=== PATIENT | male | born 1935 | race Caucasian/White ===

== ENCOUNTER 2016-12-27 09:48 | Day surgery (SDC) | payer MEDICARE ==
[~2016-12-27] VITALS: Ht 185.4 cm; Wt 84.7 kg
[2016-12-27] MEDS ORDERED: LEVO50TA4 PO (10:42)
[2016-12-27] MEDS ORDERED: FINA5TAB2 PO (10:42)
[2016-12-27] MEDS ORDERED: ZOCO80TA PO (10:42)
[2016-12-27] MEDS ORDERED: ASPI81TA11 PO (10:42)
[2016-12-27] MEDS ORDERED: ATEN25TA PO (10:42)
[2016-12-27 10:44] VITALS: BP 131/77; PULSE 68; RESP 18; TEMP 97.5; O2SAT 97
[2016-12-27 11:01] LABS: AUTOMATED NEUTROPHIL # 5.3 TH/MM3 (1.8-7.7); BASOPHIL # 0.1 TH/MM3 (0-0.2); BASOPHIL % 0.7 % (0.0-2.0); EOSINOPHIL # 0.2 TH/MM3 (0-0.4); HEMATOCRIT 47.9 % (39.0-51.0); HEMO FLAGS DIFF FINAL; LYMPH % 18.9 % (9.0-44.0); LYMPHOCYTE # 1.5 TH/MM3 (1.0-4.8); MEAN CELL VOLUME 90.8 FL (80.0-100.0); MEAN CORPUSCULAR HEMOGLOBIN 31.9 PG (27.0-34.0); MEAN CORPUSCULAR HGB CONC 35.2 % (32.0-36.0); MONO % 10.9 % (0.0-8.0); NEUT % 67.5 % (16.0-70.0); PLATELET COUNT 162 TH/MM3 (150-450); RED BLOOD COUNT 5.28 MIL/MM3 (4.50-5.90); RED CELL DISTRIBUTION WIDTH 12.5 % (11.6-17.2); WHITE BLOOD COUNT 7.8 TH/MM3 (4.0-11.0)
[2016-12-27 11:11] LABS: APTT (PATIENT) 29.2 SEC (24.3-30.1)
[2016-12-27 11:14] LABS: BICARBONATE 26.6 MEQ/L (21.0-32.0); POTASSIUM 3.6 MEQ/L (3.5-5.1)
[2016-12-27] MEDS ORDERED: HEPARIN-NS/PF INJ 500 ML ONE (11:56)
[2016-12-27] MEDS ORDERED: ASPIRIN 81 MG CHEW TAB PO ONE (12:00)
[2016-12-27] MEDS ORDERED: NS 1000P @30 MLS/HR (KVO) IV SCH (12:00)
[2016-12-27] MEDS ORDERED: IOHEXOL 350 MG/ML 50 ML BTL (for Cath Lab) OTHER ONE (12:03)
[2016-12-27] MEDS ORDERED: MISC INFORMATION XX ONE (13:15)
[2016-12-27] MEDS ORDERED: SODIUM CHLORIDE 0.9% FLUSH 10 ML FLUSH PRN (13:15)
--- NOTE | 2016-12-27 13:28 | CATHPROC ---
Heart [employer] HIS Report Study Information Study Number Admission Scheduled Start Study Start [id number] Dec 27 2016 9:48AM 12/27/2016 Dec 27 2016 11:47AM [place] [facility] Cardiac Catheterization Admit Source Facility Department Other [facility] - Public Policy Mediator Physician and Clinical Staff Initial iMsbah Ramírez RN, Amina Carlton RN Recorder Garcia Esposito,RT(R) Scrub Colton Barron RCIS(BS) Procedures Performed Procedure Location (Site) Vessel Name Coronary Angiograms LCA Left Coronary Coronary Angiograms RCA Right Coronary LV Gram-hand inj. LV LV Ventricle Equipment Time Peanut Cleaner Description Size Mfg Part Number Used/Scraped CATHETER, FR5 SWAN CASSY 11:50 LEIGH HOPPER FR 5 [id number] *[id number] Used MONITOR TRANSDUCER, TRUWAVE [id number] 11:50 LEIGH HOPPER * Used W/STOCKCOCK *[id number] 538-420 *[id number] 538-421 *[id number] 11:50 MEDLINE IND[employer] PACK, CCL CUSTOM * Used *[id number] 11:50 [employer] PACER PEN, SKIN DUAL W/ RULER * Used *[id number] 11:50 [email or web address] MEDICAL SHEATH, FR5.5 PRELUDE 11CM FR 5.5 Used 038ACT# [id number] 11:50 [email or web address] MEDICAL WIRE, 3MMJ .035 180CM 180CM Used *[id number] 11:50 NAMIC MANIFOLD, 4 PORT * Used *[id number] 11:50 NYCOMED OMNIPAQUE, 350 MG, 150ML 150ML [id number] Used [id number] 11:50 POWER MEDICAL BLANKET,WARM AIR CCL * Used *[id number] 11:50 Octamer MEDICAL SHEATH, FR4 TERUMO (10CM) FR 4 Used *[id number] History: Current Medications Medication Dosage/Unit Route Frequency Last Date/Time Taken ASA Statins (any) Synthroid Zocor History: Allergies Allergy Reaction No Known Allergies History: Risk Factors Family History of Hypertension Dyslipidemia Previous CT Previous Heart Failure Premature CAD Yes Yes No No No Prior Valve Prior PCI Prior CABG Surgery No No No Cerebrovascular Peripheral Artery Chronic Lung On Dialysis Diabetes Disease Disease Disease No No No No No History: Symptoms/Diagnosis Selection Items Angina-unstable History: CV Disease Selection Items Known CAD History: Stress Tests Stress or Imaging Studies Performed Yes Standard Exercise Stress Test No Stress Echo No Stress Test SPECT Stress Test SPECT Result Stress Test SPECT Ischemia Risk/Extent Yes Positive High Stress Test CMR No Cardiac CTA Coronary Calcium Score No No History: Other Disease Selection Items CAD Cancer CHF HTN History: Other Current Smoker Method Quit Packs a Day Years Used Pack Years No Cigarettes 46 Years Ago 1 20 20 Labs Hgb (g/dl) Hct (%) RBC (MIL/MM3) WBC (l/cumm) Platelets (thousands) 11.60-17.00 35.00-51.00 4.00-5.90 4.00-11.00 150.00-450.00 16.9 47.9 5.2 7.8 162 Glucose (mg/dl) BUN (mg/dl) Creatinine (mg/dl) BUN:Creatinine (1:x) 74.00-106.00 7.00-18.00 0.50-1.30 10.00-20.00 96 15 0.7 21.4 Na (meq/l) K (meq/l) Cl (meq/l) CO2 (mmol/L) Ca (mg/dl) 136.00-145.00 3.50-5.10 98.00-107.00 21.00-32.00 8.50-10.10 140 3.6 107 26.6 8.9 PT (sec) PTT (sec) INR (PTT:PT) 9.80-11.60 24.30-30.10 0.90-1.10 11 29.2 1 CPK-MB (ng/ML) 0.50-3.60 Not Drawn Medication Medication Total Dose (Bolus/Oral) Medication Total Dosage/Unit 1% XYLOCAINE 20 mL Medications (Bolus/Oral) Medication Time Given Dosage/Unit Administered By Reason 1% XYLOCAINE 12/27/2016 12:42:55 PM 20 mL Misbah Dexter 20 mL 1% XYLOCAINE given in lab by Misbah Dexter in Right Groin via Subcutaneous. Medication (Drip) Medication Time Given Dosage/Unit Concentration/Unit Diluent (ml) Solution IV Solutions 12/27/2016 12:03:28 PM 0 mL (IV) 500 NaCl .9 IV Solutions given in lab by Erich Deal RN in Left Forearm via Peripheral IV. Pump/Drip Flow = 20 m l/hr using NaCl .9. Initial Case Assessment Cardiovascular HR Rhythm NIBP Chest Pain 59 Sinus 129/67 0 Edema Present Skin color Skin None Normal Warm Dry Circulatory - Right Pulses Dorsalis Pedis Femoral 2 2 Scale (0,1,2,3,4,d) Circulatory - Left Pulses Dorsalis Pedis Femoral 2 2 Scale (0,1,2,3,4,d) Neurological State Oriented to time-place- Alert Moves all extremities person Respiration - General Respiration Rate SpO2 (%) O2 (lpm) (B/min) 12 96 0 Final Case Assessment Cardiovascular HR Rhythm NIBP Chest Pain 61 Sinus 137/72 0 Edema Present Skin color Skin None Normal Warm Dry Circulatory - Right Pulses Dorsalis Pedis Femoral 2 2 Scale (0,1,2,3,4,d) Circulatory - Left Pulses Dorsalis Pedis Femoral 2 2 Scale (0,1,2,3,4,d) Neurological State Oriented to time-place- Alert Moves all extremities person Respiration - General Respiration Rate SpO2 (%) O2 (lpm) (B/min) 9 95 0 Chronological Log Time Study Chronological Log 12:03:16 Patient arrived via Bed. 12:03:17 Patient Name, D.O.B, / Armband Verified By R.N. 12:03:18 Consent signed by the physician and the patient and verified by the Public Policy Mediator staff. 12:03:19 Pre-op and post- op instructions given; patient acknowledges understanding of instructions. 12:03:21 Patient has been NPO for Less than 6Hrs. 12:03:22 Skin Breakdown- none per patient. 12:03:24 Patient Warmer Placed on the Table. 12:03:28 A # 20 IV was noted in the Forearm (left). Grade = 0 12:03:28 IV Solutions given in lab by Erich Deal RN in Left Forearm via Peripheral IV. Pump/Drip F low = 20 ml/hr using NaCl .9. 12:03:29 History and physical on the chart or being dictated. Assessment: Initial Case, HR=59 BPM, Rhythm=Sinus, XTEP=457/67 mmhg, Chest Pain=0, Edema=None, Color=Normal, Skin = Warm, Dry Right Pulses: Humberto Ped=2, Femoral=2 12:03:30 Left Pulses: Humberto Ped=2, Femoral=2 Neurological: State=Alert, Ox3, JHAVERI Respiration: Resp=12 B/min, SpO2=96 %, O2=0 lpm Vitals capture started with the following parameters, Patient=Adult, Interval=5 min, Initial Pr syxmzx=233 mmHg, 12:10:07 Deflation Rate=5 mmHg, Cuff placed on Right Arm 12:11:22 HR=59 bpm, TSBO=652/67 mmhg, SpO2=96.0 %, Resp=12 B/min, Pain=0, Britney=10, Al=2 12:15:47 HR=61 bpm, BCCS=921/69 mmhg, SpO2=96.0 %, Resp=10 B/min, Pain=0, Britney=10, Al=2 12:16:56 Bilateral groins prepped with 2% chlorhexidine, and with a 3 min. waiting time. 12:17:34 Reference ECG taken 12:20:07 MD paged 12:20:46 HR=61 bpm, KDRT=267/70 mmhg, SpO2=96.0 %, Resp=11 B/min, Pain=0, Britney=10, Al=2 12:22:07 Pressure channel 1 zeroed. 12:25:49 HR=59 bpm, NGTQ=506/69 mmhg, SpO2=96.0 %, Resp=6 B/min, Pain=0, Britney=10, Al=2 12:30:46 HR=60 bpm, KNIW=357/66 mmhg, SpO2=94.0 %, Resp=12 B/min, Pain=0, Britney=10, Al=2 12:35:45 HR=58 bpm, MMCS=697/71 mmhg, SpO2=97.0 %, Resp=7 B/min, Pain=0, Britney=10, Al=2 12:35:45 MD arrived. 12:40:46 HR=62 bpm, LYCL=841/69 mmhg, SpO2=97.0 %, Resp=10 B/min, Pain=0, Britney=10, Al=2 Time Out. Correct patient, correct procedure,correct physician, power injector not loaded with contrast with surgical 12:41:54 team present. Time Out Concurred by MD, individual staff in procedure 12:42:18 Case Start 12:42:55 20 mL 1% XYLOCAINE given in lab by Misbah Dextre in Right Groin via Subcutaneous. 12:43:18 Access site was Right Femoral Artery. 12:43:28 A SHEATH, FR4 TERUMO (10CM) FR 4 was advanced into the Fem Art (right) using the Percutaneo us technique. 12:45:11 Access site was Right Femoral Vein. 12:45:18 A SHEATH, FR5.5 PRELUDE 11CM FR 5.5 was advanced into the Fem Vein (right) using the Percut aneous technique. 12:46:15 Saturation: Site=FA (Femoral Artery) , O2=98 %, Hgb=16.9 gm/dl, Condition=Condition 1. Used in calculation. 12:46:28 HR=62 bpm, BKKW=697/71 mmhg, SpO2=95.0 %, Resp=18 B/min, Pain=0, Britney=10, Al=2 12:46:40 A CATHETER, FR5 SWAN CASSY MONITOR FR 5 was inserted via Fem Vein (right) 12:47:12 Saturation: Site=PA (Pulmonary Artery) , O2=84.2 %, Hgb=16.9 gm/dl, Condition=Condition 1. Used in calculation. Recorded Pressure: PCW, HR=65, Condition=Condition 1 12:47:31 (Pulmonary Capillary Wedge) PCW Recorded Pressure: MPA, HR=63, Condition=Condition 1 12:47:44 (Main Pulmonary Artery) MPA 15 Recorded Pressure: RV, HR=64, Condition=Condition 1 12:48:39 (Right Ventricle) RV Recorded Pressure: RA, HR=63, Condition=Condition 1 12:48:53 (Right Atrium) RA 12:49:25 [place] Cassy Catheter Removed 12:50:04 Saturation: Site=RA (Right Atrium) , O2=85.5 %, Hgb=16.9 gm/dl, Condition=Condition 1. Used in calculation. A JR 4.0 INFINITI CATHETER FR 4 was advanced over a wire. OMNIPAQUE, 350 MG, 150ML 150ML was us ed for 12:50:25 injections. Recorded Pressure: LV, HR=61, Condition=Condition 1 12:50:33 (Left Ventricle) LV 135/5/14 12:50:41 The LV was manually injected with 6 cc's and visualized. OMNIPAQUE, 350 MG, 150ML 150ML use d. 12:50:48 HR=61 bpm, UOZI=516/72 mmhg, SpO2=95.0 %, Resp=10 B/min, Pain=0, Britney=10, Al=2 Recorded Pressure: LV, Ao, HR=63, Condition=Condition 1 12:50:49 (Left Ventricle) LV 141/6/13, (Aorta) Ao 135/60/93 Recorded Pressure: Ao, HR=63, Condition=Condition 1 12:51:14 (Aorta) Ao 129/58/89 12:51:29 The RCA was injected and visualized at various angles. OMNIPAQUE, 350 MG, 150ML 150ML used . After removing the current catheter a JL 4.0 INFINITI CATHETER FR 4 was advanced over a WIRE, 3 MMJ .035 180CM 12:53:11 180CM. 12:55:49 HR=66 bpm, LYRV=757/72 mmhg, SpO2=96.0 %, Resp=12 B/min, Pain=0, Britney=10, Al=2 12:56:33 The LCA was injected and visualized at various angles. OMNIPAQUE, 350 MG, 150ML 150ML use d. 12:57:35 Catheter was removed 12:57:50 Case End 13:00:48 HR=65 bpm, YJIF=466/71 mmhg, SpO2=97.0 %, Resp=8 B/min, Pain=0, Britney=10, Al=2 13:03:17 Sheath removed; pressure applied to access site. 13:05:49 HR=70 bpm, JUXL=371/75 mmhg, SpO2=95.0 %, Resp=19 B/min, Pain=0, Britney=10, Al=2 13:10:52 HR=60 bpm, ATWY=766/72 mmhg, SpO2=94.0 %, Resp=19 B/min, Pain=0, Britney=10, Al=2 Assessment: Final Case, HR=61 BPM, Rhythm=Sinus, PFGJ=226/72 mmhg, Chest Pain=0, Edema=None, Color=Normal, Skin = Warm, Dry Right Pulses: Humberto Ped=2, Femoral=2 13:11:13 Left Pulses: Humberto Ped=2, Femoral=2 Neurological: State=Alert, Ox3, JHAVERI Respiration: Resp=9 B/min, SpO2=95 %, O2=0 lpm 13:13:28 No case complications noted. 13:13:29 Cine recording checked. 13:14:40 Bedside Report will be given. 13:14:54 A Left and Right Heart Cath was performed. 13:15:51 HR=63 bpm, TWCJ=154/68 mmhg, SpO2=94.0 %, Resp=26 B/min, Pain=0, Britney=10, Al=2 13:16:42 Sheath removed; pressure applied to access site. 13:20:48 HR=62 bpm, CJVQ=436/72 mmhg, SpO2=94.0 %, Resp=21 B/min, Pain=0, Britney=10, Al=2 13:24:25 Sterile dressing applied to site 13:27:40 Patient moved to stretcher End Study - Contrast Media Used In Study Contrast Total Opened (mL) Total Used (mL) Total Wasted (mL) Omnipaque 150 30 120 End Study - Maximum Contrast Load Max Contrast Load (mL) 604.9 End Study - Radiation Exposure Fluoro Time (minutes) 2.9 End Study - Patient Disposition Complications Transferred To Interventional Outcome No Outpatient Bed No attempt made
--- NOTE | 2016-12-27 14:57 | EKG ---
Date Performed: 12/27/2016 Time Performed: 11:01:16 PTAGE: 81 years EKG: Sinus bradycardia Possible septal infarct - age undetermined Abnormal ECG NO PREVIOUS TRACING DOCTOR: Abner Nicole Interpretating Date/Time 12/27/2016 14:55:43
[2016-12-27] MEDS ORDERED: SODIUM CHLORIDE 0.9% FLUSH 10 ML FLUSH SCH (21:00)
--- NOTE | 2016-12-29 18:31 | MA ---
cc: CECILIA VO M.D. DATE 12/27/16 PROCEDURE PERFORMED Right heart catheterization, left heart catheterization, left ventriculography, coronary angiography. INDICATION High-risk nuclear stress test, new onset lower extremity edema, congestive heart failure. [place] Heart Association class I, new onset angina; [place] Cardiovascular Society Class III angina, unstable angina. Coronary artery disease. PROCEDURE IN DETAIL The patient was brought to the cardiac catheterization laboratory, prepped and draped in the usual sterile fashion. 10 ccs of 1% lidocaine was used to locally anesthetize the right common femoral artery and right common femoral vein area. 4-Malagasy sheath placed in the right common femoral artery and 5-Malagasy sheath placed in the right common femoral vein. Right heart catheterization was performed first with the following findings: The pulmonary capillary wedge pressure was 11/10-8. The PA pressure was 23/8-15. RV pressure 27/1-6. RA pressure 6/3-2. The cardiac output by Catalina is 8.2 liters per minute. Cardiac index by Catalina is 3.9 meters squared per minute. SVR is 883.9 dynes. The FA sat on room air 98%. The PA sat on room air 84.2%. The RA sat on room air 85.5%. The left heart catheterization was then performed with a 4-Malagasy JR-4, JL-4 catheter with the following findings; The LV pressures 140/5-6. Ejection fraction 60%. The right coronary artery is codominant. There are grade III to IV collaterals from the conus branch and a proximal RV branch supplying ____ filling retrograde to a point of occlusion. This retrograde segment does supply a small diagonal artery and antegrade to the LAD. The right ROBERTA, PDA supply also grade III, IV collaterals to the distal LAD. The LAD in the mid segment has a 95% stenosis. Mid to distal segment is relatively small, probably 1 to 1.5 mm in diameter with no significant obstructive disease and the LAD is transapical. Left main coronary artery has no significant disease angiographically. The LAD is occluded at the ostium. There is a ramus intermedius vessel which is a medium-sized vessel with a proximal 60% stenosis. The first obtuse marginal vessel is a small vessel, no significant disease angiographically. Third obtuse marginal vessel is a medium-sized vessel, no significant disease angiographically. There is a distal posterolateral artery which has no significant disease angiographically. The left circumflex vessel was a codominant vessel. Left PDA has no significant disease angiographically. CONCLUSION 1. Angiographically moderate to severe two-vessel coronary artery disease in a right dominant system as detailed above. 2. Normal LV systolic function, ejection fraction 60%. 3. Normal right heart catheterization. 4. Recommend CABG due to high-risk nuclear stress test. Note, the patient currently is asymptomatic, however, he did tell me in the office that he has been having chest pain with minimal exertion. The patient is currently undecided about CABG. Will continue medical management. He will follow up in my office next week to further discuss risk and benefits of CABG. Would also consider doing FFR of the ramus intermedius vessel and perform a PCI of this lesion if determined to be hemodynamically significant with an ___ of 0.80 or less. Otherwise, he will continue aspirin 81 milligrams a day, atenolol 25 milligrams daily, Zocor 80 milligrams at bedtime. MD MENA Voss/EO /1:07 PM /6:10 PM
== END 2016-12-27 16:04 | disposition home or self-care (01) ==
LOC: HDIC 09:48 → HDOC 09:48
PROVIDERS: ATTEND Internal Medicine Interventional Cardiology
DX: I25.110 Atherosclerotic heart disease of native coronary artery with unstable angina pectoris (principal); I50.9 Heart failure, unspecified; R00.1 Bradycardia, unspecified; R94.31 Abnormal electrocardiogram [ECG] [EKG]; E78.00 Pure hypercholesterolemia, unspecified; E78.2 Mixed hyperlipidemia; R60.0 Localized edema; Z79.899 Other long term (current) drug therapy; Z79.82 Long term (current) use of aspirin; Z87.891 Personal history of nicotine dependence
CPT/HCPCS: 80048; 82810; 85025; 85610; 85730; 93005; 93460; C1769; C1893; J1644; Q9967

== ENCOUNTER → 2017-10-02 | Day surgery (SDC) | payer MEDICARE ==
[~2017-10-02] MED LIST: ACETAMINOPHEN 1000 MG/100 ML 100 ML IV ONE; ACETAMINOPHEN/HYDROcodone 325 MG/5 MG TAB ONE; ASPI81TA23 PO; ATEN25TA PO; BUPIVACAINE/EPINEPHRINE 0.25% PF 10 ML VIAL ONE; FINA5TAB2 PO; KETOROLAC TROMETHAMINE 30 MG/ML (IVP) VIAL IV PUSH ONE; LACTATED RINGER'S 1000 ML INJ 1,000 ML ONE; LEVO50TA4 PO; MIDAZOLAM HCL 2 MG/2 ML VIAL ONE; MORPHINE SULFATE 4 MG/ML INJ ONE; ONDANSETRON HCL 4 MG/2 ML VIAL IV PUSH ONE; PROPOFOL 200 MG/20 ML AMP IV ONE; ZOCO80TA PO; ceFAZolin 2 GM PREMIX 50 ML ONE
--- NOTE | 2017-10-02 14:59 | PD.OP ---
cc: Baldomero Baker MD Operative Report Date of Surgery: October 02, 2017 Preoperative Diagnosis: Symptomatic bilateral inguinal hernia Postoperative Diagnosis: Bilateral direct inguinal hernia Procedure: Laparoscopic repair bilateral inguinal hernia with mesh Anesthesia: General Surgeon: Baldomero Baker Manager Banquet(s): Shannon NELSON Operation and Findings: This procedure was assisted by my nurse practitioner. The skill set of an MIDDLE [employer]CHO[employer] RESOURCE TEACHER was medically necessary to provide improved efficiency and safety in the completion of the procedure. machines technician was at the back table providing appropriate instrumentation while the nurse practitioner directly assisted me through the entirety of the procedure. Indications for procedure Large bilateral inguinal hernia symptomatic. Intraoperative findings Bilateral direct inguinal hernias with incarcerated preperitoneal fatty tissue. Estimated blood loss less than 10 mL. Description of procedure in detail The patient was identified as a Akos[place] Costa, taken to the operating room placed in supine position. Following induction of adequate general endotracheal anesthesia and placement of sequential compression device on bilateral lower extremities, a timeout procedure was performed. Following completion timeout procedure everyone's satisfaction within the room local anesthetic was infiltrated in the infraumbilical midline. A 2 cm incision was carried out the scalpel dissection continued posteriorly to the level of the anterior rectus fascia on the right side. Incision along the anterior rectus fascia medial edge was made with a scalpel and a preperitoneal plane was developed the surgeon 's finger directed towards the pubic symphysis. With the patient in slight Trendelenburg position the preperitoneal dissecting balloon was placed in the preperitoneal space and under direct laparoscopic view inflated to a total of approximately 30 pumps. This allowed for identification of the pubic symphysis bilateral Alvin's ligaments direct hernia pseudo-sac and inferior epigastric vessels. The balloon was desufflated removed and the structural balloon trocar placed in the preperitoneal space its balloon inflated and CO2 insufflation to a level of 11 mmHg ensued. 2 infraumbilical midline 5 mm trochars were then placed in the preperitoneal space under direct laparoscopic view after incision the skin with a scalpel. Attention was turned first to the right side. Incarcerated preperitoneal fatty tissues were released from the direct hernia pseudo-sac. A photograph was taken of the large direct hernia defect. The pseudo-sac was tacked down to the Alvin's ligament with the tacking device. Blunt dissection lateral and posterior to the spermatic cord was then performed and adherent peritoneum was reduced to the base of the spermatic cord. There is no evidence of spermatic cord lipoma. There is no evidence of femoral hernia. A 4 x 6" piece of atrium Prolite mesh was cut with an anterolateral slit placed surrounding the spermatic cord and tacked in position with the tacking device. Tacks were placed to approximate the anterolateral slit and on the inferior lateral border of Alvin's ligament. A 2 x 6" piece of mesh was placed across the anterolateral slit and help position with a tacking device placing tacks superior lateral inferior medial and superior medial. Photograph was taken of the completed repair. Attention was then turned to the left side. Blunt grasper was used to reduce preperitoneal fatty tissue from the pseudo- sac. A photograph was taken of the direct hernia defect. The pseudo-sac was tacked to the anterior Alvin's ligament using a tacking device. Blunt dissection lateral and posterior the spermatic cord was then performed. Adherent peritoneum was reduced to the base of spermatic cord using the blunt graspers. There is no evidence of femoral hernia. There is no evidence of spermatic cord lipoma. A 4 x 6" piece of atrium Prolite mesh was cut with an anterolateral slit placed surrounding the spermatic cord intact position with the tacking device. Tack was placed to approximate the anterolateral slit on the inferior lateral border of Alvin's ligament. A 2 x 6" piece of the mesh was placed across the anterolateral slit and help position with the tacking device. Tack was placed superior lateral inferior medial and superior medial. Photograph was taken to complete a repair. Care was taken to avoid tach placement inferior laterally on both sides to avoid cutaneous nerve injury. A small amount of bloody drainage had occurred from a small sidebranch off the inferior epigastric vessels on the right side. This was cauterized with electrocautery. Small amount of bloody drainage was suctioned out of the preperitoneal space. 20 cc of local anesthetic was placed in the preperitoneal space. Trochars were removed under direct visualization there was no evidence of bleeding from trocar sites. The preperitoneal space was desufflated through the infraumbilical port. During the desufflation inferolateral mesh was held against the abdominal wall. The infraumbilical port port was then removed. The anterior rectus fascial incision was closed with a running 2-0 Vicryl suture. Port site skin incisions were approximated with 4 Monocryl subcuticular sutures. Dressings were applied with Mastisol half-inch brown Steri-Strips. Patient tolerated the procedure without apparent complication. Sponge needle and instrument counts were correct at the end of the case. Patient was transported to PACU in stable condition. Baldomero Baker MD October 02, 2017 14:59
== END | disposition home or self-care (01) ==
LOC: ESDC 11:50
PROVIDERS: ATTEND Surgery Trauma Surgery
DX: K40.20 Bilateral inguinal hernia, without obstruction or gangrene, not specified as recurrent (principal)
CPT/HCPCS: 00840; 49650; C1727; C1781; J0131; J0690; J1885; J2250; J2270; J2405; J3010; J7120